=== PATIENT | female | born 1985 | race Caucasian/White ===

== ENCOUNTER 2020-11-02 10:46 | Emergency (ER) | payer OTHER ==
[2020-11-02 11:01] VITALS: O2SAT 98
[2020-11-02] MEDS ORDERED: KLONOPIN PO STA (11:07)
--- NOTE | 2020-11-02 11:34 | ERPHSYRPT ---
- History of Present Illness Time Seen by Provider: 11/02/20 10:49 Source: patient Exam Limitations: no limitations Patient Subjective Stated Complaint: Pt states "I take clonopin and I have new insurance and when I went to refill it, it was denied for some reason, I have been trying to get through with over the counter stuff, but I just cant, I need a little help with the meds." Triage Nursing Assessment: Pt presented alert and oriented X 3, skin pwd pt ambulates with an upright steady gait, able to speak in clear full sentnences pt in no apparent respiratory distress. Physician History: 35 years old female presented in the ER with chief complaint of withdrawal symptoms from Klonopin. Patient reports she has been taking Klonopin 1 mg twice a day for quite some time and recently her refill needed prior authorization which could not be done last week. Her last dose of Klonopin was more than 4 days ago and she has been trying [id number] stuff to help with her anxiety but her symptoms are getting out of control. She is feeling scary, palpitations, restlessness, abdominal cramping and mild diarrhea since yesterday. Denies any suicidal or homicidal ideations. Timing/Duration: day(s) (2), gradual onset, worse Severity: moderate Modifying Factors: Improves With: rest Allergies/Adverse Reactions: No Known Drug Allergies Allergy (Verified 11/02/20 11:01) Home Medications: Mirtazapine [Remeron] 15 mg PO DAILY 11/02/20 [History] Quetiapine Fumarate [Seroquel Xr] 200 mg PO HS 11/02/20 [History] clonazePAM [Clonazepam] 1 mg PO DAILY 11/02/20 [History] Hx Tetanus, Diphtheria Vaccination/Date Given: No Hx Influenza Vaccination/Date Given: No Hx Pneumococcal Vaccination/Date Given: No Immunizations Up to Date: Yes Travel Risk - International Travel Have you traveled outside of the country in past 3 weeks: No - Coronavirus Screening Are you exhibiting any of the following symptoms?: No Close contact with a COVID-19 positive Pt in past 14-21 Days: No - Review of Systems Constitutional: No Symptoms Eyes: No Symptoms Ears, Nose, & Throat: No Symptoms Respiratory: No Symptoms Cardiac: Palpitations Abdominal/Gastrointestinal: Abdominal Pain, Nausea, Diarrhea Genitourinary Symptoms: No Symptoms Musculoskeletal: Myalgias Skin: No Symptoms Neurological: No Symptoms Psychological: Anxiety Endocrine: No Symptoms Hematologic/Lymphatic: No Symptoms Immunological/Allergic: No Symptoms - Past Medical History Pertinent Past Medical History: Yes Neurological History: No Pertinent History ENT History: No Pertinent History Cardiac History: No Pertinent History Respiratory History: No Pertinent History Endocrine Medical History: No Pertinent History Musculoskeletal History: No Pertinent History GI Medical History: No Pertinent History History: No Pertinent History Psycho-Social History: Anxiety, Depression Female Reproductive Disorders: No Pertinent History - Past Surgical History Past Surgical History: Yes Other Surgical History: hysterecomy. tonsils. c section. wisdom teeth - Social History Smoking Status: Current every day smoker How long have you smoked: years Exposure to second hand smoke: Yes Drug Use: marijuana Patient Lives Alone: No - Female History Hx Last Menstrual Period: hysterecomy Hx Now: No - Nursing Vital Signs Nursing Vital Signs: Initial Vital Signs Temperature 99.2 F 11/02/20 10:55 Pulse Rate 102 H 11/02/20 10:55 Respiratory Rate 20 11/02/20 10:55 Blood Pressure 148/90 11/02/20 10:55 O2 Sat by Pulse Oximetry 98 11/02/20 10:55 Pain Scale Pain Intensity 0 - Physical Exam General Appearance: no apparent distress, alert, anxiety Eye Exam: PERRL/EOMI, eyes nml inspection Ears, Nose, Throat Exam: normal ENT inspection, TMs normal, pharynx normal Neck Exam: normal inspection, supple, full range of motion Respiratory Exam: normal breath sounds, chest tenderness Cardiovascular Exam: regular rate/rhythm, normal heart sounds Gastrointestinal/Abdomen Exam: soft, normal bowel sounds, No tenderness Back Exam: normal inspection, normal range of motion Extremity Exam: normal inspection, normal range of motion Neurologic Exam: alert, oriented x 3, cooperative, freezer operator II-XII nml as tested, nml cerebellar function, nml station & gait, sensation nml, No motor deficits, No sensory deficit Skin Exam: normal color SpO2 Interpretation: normal SpO2: 98 O2 Delivery: Room Air Ordered Tests: Medication Summary Discontinued Medications Generic Name Dose Route Start Last Admin Trade Name Freq PRN Reason Stop Dose Admin Clonazepam 2 mg 11/02/20 11:07 11/02/20 11:26 Klonopin PO 11/02/20 11:08 2 mg ONCE STA Administration - Progress Progress: improved Progress Note: 11/02/20 11:33 Patient's pharmacy is called and she does have a prescription they are needing prior authorization. She is given one-time dose of Klonopin here and recommended calling back her primary care in the morning so that prescription can be filled. Do not think she needs any other work-up and is stable for discharge. Counseled pt/family regarding: diagnosis, need for follow-up - Departure Departure Disposition: Home Clinical Impression: Withdrawal from benzodiazepine Qualifiers: Complication of substance-induced condition: with unspecified complication Qualified Code(s): F13.239 - Sedative, hypnotic or anxiolytic dependence with withdrawal, unspecified Condition: Stable Critical Care Time: No Referrals: DOCTOR,NO FAMILY [Primary Care Provider] - (Call your doctor in the morning for expediting prior authorization process and also follow-up with them for reevaluation) Instructions: Prescription Drug Withdrawal (DC) Additional Instructions: Follow-up with primary care for reevaluation. Return to ER for worsening anxiety symptoms/withdrawal symptoms. Also return to ER or call 911 if has any suicidal or homicidal ideations.
[2020-11-02 11:49] VITALS: BP 103/66; PULSE 88
== END 2020-11-02 11:50 | disposition home or self-care (01) ==
LOC: ED 10:46
DX: F13.239 Sedative, hypnotic or anxiolytic dependence with withdrawal, unspecified (principal)
CPT/HCPCS: 99283

== ENCOUNTER 2021-06-17 12:21 | Day surgery (SDC) | payer OTHER ==
[2021-06-17] MEDS ORDERED: LIDOCAINE HCL 2% 100 MG/5 ML IJ ONE (12:22)
[2021-06-17] MEDS ORDERED: DIPRIVAN 200 MG/20 ML IV ONE (13:54)
--- NOTE | 2021-06-17 15:22 | XRAY ---
Indication: Left C2-C4 MBB. Intraoperative fluoroscopy was provided for 8 seconds. 2 digital spot image submitted for interpretation demonstrates posterior needle tips projecting over the expected left C2-C4 nerve roots. Correlate with intraoperative findings/report.
[2021-06-17] MEDS ORDERED: Lactated Ringers 1,000 ML IV ONE (16:30)
--- NOTE | 2021-06-17 16:35 | XRAY ---
8 seconds of fluoroscopy was used in surgery for a left C2-C4 MBB.
== END 2021-06-17 14:25 | disposition home or self-care (01) ==
LOC: SDC-PAIN 12:21
PROVIDERS: ATTEND Psychiatry & Neurology Pain Medicine
DX: M47.812 Spondylosis without myelopathy or radiculopathy, cervical region (principal); Z79.899 Other long term (current) drug therapy
CPT/HCPCS: 64490; 64491; 72040; 77002; J2704

== ENCOUNTER 2021-10-18 15:27 | Emergency (ER) | payer OTHER ==
--- NOTE | 2021-10-18 16:06 | ERPHSYRPT ---
- History of Present Illness Time Seen by Provider: 10/18/21 16:04 Source: patient Exam Limitations: no limitations Patient Subjective Stated Complaint: Patient states that she has been having pain in lungs for a couple weeks which has progressively become worse. States eliel metz has a history of seizures thought it may be related to muscle pain. States her pain is a 10 when she coughs. Triage Nursing Assessment: patient to ED with pain in lungs from cough. Patients VS within normal limits. Lungs clear bilaterally. Physician History: Patient states that she has been having pain in lungs for a couple weeks which has progressively become worse. States she has a history of seizures thought it may be related to muscle pain. States her pain is a 10 when she coughs. Timing/Duration: week(s) (two weeks) Cough Quality/Degree: dry cough Possible Cause: no prior episodes Associated Symptoms: chest pain/soreness, cough, muscle aches, shortness of breath, No fever, No chills, No dizziness, No nasal congestion, No nasal bob inage, No sinus infection, No sore throat, No wheezing Allergies/Adverse Reactions: No Known Drug Allergies Allergy (Verified 10/18/21 15:43) Home Medications: clonazePAM [Clonazepam] 1 mg PO DAILY 11/02/20 [History] Carbamazepine 200 mg [Tegretol 200 MG] 200 mg PO TID 10/18/21 [History] Cyclobenzaprine HCl 5 mg PO 10/18/21 [History] Hydroxyzine HCl 50 mg/ml [Vistaril 50 MG/ML] 10/18/21 [History] Trazodone HCl 50 mg [Desyrel 50 mg] 50 mg PO DAILY 10/18/21 [History] hydrOXYzine pamoate [Hydroxyzine Pamoate] 10/18/21 [History] hydrOXYzine pamoate [Hydroxyzine Pamoate] 100 mg PO 10/18/21 [History] Hx Tetanus, Diphtheria Vaccination/Date Given: No Hx Influenza Vaccination/Date Given: No Hx Pneumococcal Vaccination/Date Given: No Travel Risk - International Travel Have you traveled outside of the country in past 3 weeks: No - Coronavirus Screening Are you exhibiting any of the following symptoms?: No Close contact with a COVID-19 positive Pt in past 14-21 Days: No - Vaccine Status Have you recieved a Covid-19 vaccination: No - Review of Systems Constitutional: No Fever, No Chills Eyes: No Symptoms Ears, Nose, & Throat: No Symptoms Respiratory: Cough, No Dyspnea Cardiac: No Chest Pain, No Edema, No Syncope Abdominal/Gastrointestinal: No Abdominal Pain, No Nausea, No Vomiting, No Diarrhea Genitourinary Symptoms: No Dysuria Musculoskeletal: No Back Pain, No Neck Pain Skin: No Rash Neurological: No Dizziness, No Focal Weakness, No Sensory Changes Psychological: No Symptoms Endocrine: No Symptoms All Other Systems: Reviewed and Negative - Past Medical History Pertinent Past Medical History: Yes Neurological History: No Pertinent History ENT History: No Pertinent History Cardiac History: No Pertinent History Respiratory History: No Pertinent History Endocrine Medical History: No Pertinent History Musculoskeletal History: No Pertinent History GI Medical History: No Pertinent History History: No Pertinent History Psycho-Social History: Anxiety, Depression Female Reproductive Disorders: No Pertinent History - Past Surgical History Past Surgical History: Yes Other Surgical History: hysterecomy. tonsils. c section. wisdom teeth - Social History Smoking Status: Current every day smoker How long have you smoked: years Exposure to second hand smoke: Yes Drug Use: marijuana Patient Lives Alone: No - Female History Hx Now: No (hysterectomy) - Nursing Vital Signs Nursing Vital Signs: Initial Vital Signs Temperature 98 F 10/18/21 15:35 Pulse Rate 84 10/18/21 15:35 Respiratory Rate 20 10/18/21 15:35 Blood Pressure 107/56 10/18/21 15:35 O2 Sat by Pulse Oximetry 100 10/18/21 15:35 Pain Scale Pain Intensity 8 - Physical Exam General Appearance: no apparent distress, alert Eye Exam: PERRL/EOMI, eyes nml inspection Ears, Nose, Throat Exam: normal ENT inspection, TMs normal, pharynx normal, moist mucous membranes Neck Exam: normal inspection, non-tender, supple, full range of motion Respiratory Exam: diminished breath sounds, crackles/rales, rhonchi, wheezing, No respiratory distress Cardiovascular Exam: regular rate/rhythm, normal heart sounds Gastrointestinal/Abdomen Exam: soft, No tenderness Back Exam: normal inspection, No CVA tenderness, No vertebral tenderness Extremity Exam: normal inspection, normal range of motion Neurologic Exam: alert, oriented x 3, cooperative, normal mood/affect, sensation nml, No motor deficits Skin Exam: normal color, warm, dry, No rash Lymphatic Exam: No adenopathy SpO2: 100 - Course Nursing assessment & vital signs reviewed: Yes EKG Interpreted by Me: Sinus Rhythm - Radiology Exams Chest X-ray Interpretation: Reviewed by me, Negative Ordered Tests: Active Orders 24 hr Category Date Time Status CHEST 2 VIEWS (PA AND LAT) Stat Exams 10/18/21 16:03 Taken CBC W DIFF Stat Lab 10/18/21 16:27 Completed CMP Stat Lab 10/18/21 16:27 Completed COVID AG-BINAX NOW RAPID TEST Stat Lab 10/18/21 16:27 Completed D-DIMER QUANTITATIVE Stat Lab 10/18/21 16:27 Completed TROPONIN Q3H Lab 10/18/21 16:27 Completed TROPONIN Q3H Lab 10/18/21 19:00 Ordered TROPONIN Q3H Lab 10/18/21 22:00 Ordered TROPONIN Q3H Lab 10/19/21 01:00 Ordered TROPONIN Q3H Lab 10/19/21 04:00 Ordered Medication Summary Discontinued Medications Generic Name Dose Route Start Last Admin Trade Name Freq PRN Reason Stop Dose Admin Hydrocortisone Sodium Succinate 250 mg 10/18/21 17:23 Hydrocortisone Sod Succinate 250 Mg/Vial Vial IV 10/18/21 17:24 Q6H STA Lab/Rad Data: Laboratory Result Diagrams 10/18/21 16:27 10/18/21 16:27 Laboratory Results 10/18/21 10/18/21 10/18/21 Range/Units 16:27 16:27 16:27 WBC (4.0-10.5) K/mm3 RBC (4.1-5.4) M/mm3 Hgb (12.0-16.0) gm/dl Hct (35-47) % MCV (78-100) fl MCH (26-32) pg MCHC (32-36) g/dl RDW (11.5-14.0) % Plt Count (150-450) K/mm3 MPV (7.5-11.0) fl Gran % (36.0-66.0) % Eos # (Auto) (0-0.5) Absolute Lymphs (auto) (1.0-4.6) Absolute Monos (auto) (0.0-1.3) Lymphocytes % (24.0-44.0) % Monocytes % (0.0-12.0) % Eosinophils % (0.00-5.0) % Basophils % (0.0-0.4) % Absolute Granulocytes (1.4-6.9) Basophils # (0-0.4) D-Dimer 403 (215-500) ng/mL Sodium (137-145) mmol/L Potassium (3.5-5.1) mmol/L Chloride (98-107) mmol/L Carbon Dioxide (22-30) mmol/L Anion Gap (5-15) MEQ/L BUN (7-17) mg/dL Creatinine (0.52-1.04) mg/dL Estimated GFR ML/MIN Glucose (74-106) mg/dL Calcium (8.4-10.2) mg/dL Total Bilirubin (0.2-1.3) mg/dL AST (14-36) U/L ALT (0-35) U/L Alkaline Phosphatase (38-126) U/L Troponin I < 0.012 (0.000-0.034) ng/mL Serum Total Protein (6.3-8.2) g/dL Albumin (3.5-5.0) g/dL SARS-CoV-2 Ag (Rapid) NEGATIVE (NEGATIVE) 10/18/21 10/18/21 Range/Units 16:27 16:27 WBC 4.4 (4.0-10.5) K/mm3 RBC 3.64 L (4.1-5.4) M/mm3 Hgb 11.6 L (12.0-16.0) gm/dl Hct 35.0 (35-47) % MCV 96.2 (78-100) fl MCH 31.9 (26-32) pg MCHC 33.1 (32-36) g/dl RDW 12.5 (11.5-14.0) % Plt Count 299 (150-450) K/mm3 MPV 9.1 (7.5-11.0) fl Gran % 35.1 L (36.0-66.0) % Eos # (Auto) 0.14 (0-0.5) Absolute Lymphs (auto) 2.18 (1.0-4.6) Absolute Monos (auto) 0.48 (0.0-1.3) Lymphocytes % 49.8 H (24.0-44.0) % Monocytes % 11.0 (0.0-12.0) % Eosinophils % 3.2 (0.00-5.0) % Basophils % 0.9 (0.0-0.4) % Absolute Granulocytes 1.54 (1.4-6.9) Basophils # 0.04 (0-0.4) D-Dimer (215-500) ng/mL Sodium 141 (137-145) mmol/L Potassium 4.2 (3.5-5.1) mmol/L Chloride 104 (98-107) mmol/L Carbon Dioxide 31 H (22-30) mmol/L Anion Gap 9.1 (5-15) MEQ/L BUN 7 (7-17) mg/dL Creatinine 0.85 (0.52-1.04) mg/dL Estimated GFR > 60.0 ML/MIN Glucose 78 (74-106) mg/dL Calcium 9.1 (8.4-10.2) mg/dL Total Bilirubin 0.30 (0.2-1.3) mg/dL AST 23 (14-36) U/L ALT 10 (0-35) U/L Alkaline Phosphatase 55 (38-126) U/L Troponin I (0.000-0.034) ng/mL Serum Total Protein 6.1 L (6.3-8.2) g/dL Albumin 3.8 (3.5-5.0) g/dL SARS-CoV-2 Ag (Rapid) (NEGATIVE) - Progress Progress: improved Air Movement: good Blood Culture(s) Obtained: No Antibiotics given: No Counseled pt/family regarding: drug and/or alcohol abuse, lab results, d iagnosis, need for follow-up, rad results, smoking cessation - Departure Departure Disposition: Home Clinical Impression: Pleurisy without effusion Condition: Stable Critical Care Time: No Referrals: RADHA MENA DROP WORKER [Primary Care Provider] - Follow up/PCP as directed Instructions: Pleuritic Chest Pain (DC) Additional Instructions: Discharge/Care Plan RADHA SALCEDO was seen on 10/18/21 in the Emergency Room. The patient was counseled regarding Diagnosis,Lab results, Imaging studies, need for follow up and when to return to the Emergency Room. Prescriptions given: Discharge Note I have spoken with the patient and/or caregivers. I have explained the patient's condition, diagnosis and treatment plan based on the information available to me at this time. I have answered the patient's and/or caregiver's questions and addressed any concerns. The patient and/or caregivers have as good understanding of the patient's diagnosis, condition and treatment plan as can be expected at this point. The vital signs have been stable. The patient's condition is stable and appropriate for discharge from the emergency department. The patient will pursue further outpatient evaluation with the primary care physician or other designated or consulting physician as outlined in the dischar ge instructions. The patient and/or caregivers are agreeable to this plan of care and follow-up instructions have been explained in detail. The patient and/or caregivers have received these instruction. The patient/and or caregivers are aware that any significant change in condition or worsening of symptoms should prompt an immediate return to this or the closest emergency department or call 911. DENISSERADHA was seen on 10/18/21 n the Emergency Room. At that time you were treated for an emergent condition, during your visit Laboratory, Radiology and/or other procedures may have been ordered. It is very important that you follow-up with your Primary Care Physician RADHA MENA NP within the next 24-48 hours to review your Emergency Room visit and the final results of testing that was ordered. Some test results such as Urine Cultures, Blood Cultures, and other cultures if ordered will not be finalized for 24-48 hours. If you do not have a Primary Care Provider please call the medical records department at [phone] ext [phone] to obtain a copy of your results or you may sign into our patient portal to obtain these results by visiting us @ [email or web address] and completing the following steps: 1. Click on the Patient Portal link 2. Click the Patient Self Enrollment Link to complete the enrollment form and entering your 3. Once the enrollment form is completed you will receive an email with a temporary ID and password at the email address you provided. 4. Next choose a user name and password. Your user name must be at least 4 characters long and your password must be at least 4 characters long. 5. Choose a security question from the list and provide your answer to the question. If you already have signed into the Health Portal you may access your Health Care Information 21/03 by the following steps: 1. Login to our website @ [email or web address] 2. Enter your original user name and password. FAQS The [facility] Portal is an online tool that contains your Lab Results, R adiology Reports, Visit History, Discharge Instructions and Health Summary Lab and Radiology Results will not be available for 72 hours on the portal. The Portal is a secure site, passwords are encryted and URLs are re-written so they cannot be copied and pasted. You and authorized family members are the only ones who can access your Portal. Also there is a timeout feature that protects your information if you leave the Portal page open. If you have technical difficulty please use the Contact Us link on the page this will allow you to submit any questions you have regarding the Portal or you may contact the Medical Record Department at [phone] ext [phone]. Prescriptions: Amoxicillin 500 mg PO TID #30 tablet Methylprednisolone Packet [Medrol Dosepack] 4 mg PO UD #30 packet
[2021-10-18 16:41] LABS: Absolute Neutrophil Ct (ANC) 1.54 (1.4-6.9); Basophil (Absolute #) 0.04 (0-0.4); Eosinophil % 3.2 % (0.00-5.0); Eosinophil (Absolute #) 0.14 (0-0.5); Hemoglobin 11.6 gm/dl (12.0-16.0); Lymphocyte (Absolute #) 2.18 (1.0-4.6); Lymphocytes % 49.8 % (24.0-44.0); Mean Cell Volume 96.2 fl (78-100); Mean Corpuscular Hemoglobin 31.9 pg (26-32); Mean Corpuscular Hgb Concent. 33.1 g/dl (32-36); Mean Platelet Volume 9.1 fl (7.5-11.0); Monocyte (Absolute #) 0.48 (0.0-1.3); Neutrophil % 35.1 % (36.0-66.0); Platelet Count 299 K/mm3 (150-450); Red Blood Count 3.64 M/mm3 (4.1-5.4); Red Cell Distribution Width 12.5 % (11.5-14.0); White Blood Count 4.4 K/mm3 (4.0-10.5)
[2021-10-18 16:52] LABS: ALBUMIN 3.8 g/dL (3.5-5.0); ALKALINE PHOSPHATASE 55 U/L (38-126); ANION GAP 9.1 MEQ/L (5-15); BLOOD UREA NITROGEN 7 mg/dL (7-17); CHLORIDE 104 mmol/L (98-107); Calcium 9.1 mg/dL (8.4-10.2); Carbon Dioxide 31 mmol/L (22-30); Creatinine 1 0.85 mg/dL (0.52-1.04); EST GLOMERULAR FILTRATION RATE > 60.0 ML/MIN; Glucose 78 mg/dL (74-106); Potassium 4.2 mmol/L (3.5-5.1); SGOT/AST 23 U/L (14-36); SGPT/ALT 10 U/L (0-35); SODIUM 141 mmol/L (137-145); Total Protein 6.1 g/dL (6.3-8.2)
[2021-10-18 17:02] LABS: COVID AG -BINAX NOW RAPID TEST NEGATIVE (NEGATIVE)
[2021-10-18] MEDS ORDERED: solu-CORTEF 250MG IV STA (17:23)
[2021-10-18] MEDS ORDERED: solu-CORTEF 250MG ONE (18:08)
[2021-10-18] MEDS ORDERED: solu-CORTEF 250MG IM ONE (18:11)
[2021-10-18 18:25] VITALS: BP 98/60; PULSE 78; O2SAT 98
--- NOTE | 2021-10-18 19:11 | XRAY ---
Indication: Right chest pain and short of breath. Comparison: None PA/lateral chest hyperinflated and clear. Heart not enlarged. Bony thorax intact with remote appearing T7 and lesser degree T6 compression deformities with 10-25% height loss.
== END 2021-10-18 18:23 | disposition home or self-care (01) ==
LOC: ED 15:27
DX: R09.1 Pleurisy (principal); R05.9 Cough, unspecified; R07.9 Chest pain, unspecified; M79.10 Myalgia, unspecified site; R06.02 Shortness of breath; Z72.0 Tobacco use; Z79.899 Other long term (current) drug therapy; Z79.52 Long term (current) use of systemic steroids
CPT/HCPCS: 36415; 71046; 80053; 84484; 85025; 85379; 96372; 99000; 99284; J1720

== ENCOUNTER 2022-01-27 11:44 | Day surgery (SDC) | payer OTHER ==
[2022-01-27] MEDS ORDERED: Versed 2 MG/2 ML Injection ONE (13:12)
[2022-01-27] MEDS ORDERED: DIPRIVAN 200 MG/20 ML IV ONE (13:52)
[2022-01-27] MEDS ORDERED: Zofran 4 MG/2 ML VIAL ONE (14:12)
[2022-01-27] MEDS ORDERED: Lactated Ringers 1,000 ML IV ONE (14:40)
--- NOTE | 2022-01-27 15:05 | XRAY ---
Indication: Bilateral SI joint injection. Intraoperative fluoroscopy provided for 14 seconds. 4 digital spot images submitted for interpretation demonstrates posterior needle tip projecting over the inferior left and right SI joint. Correlate with intraoperative findings/report.
--- NOTE | 2022-01-27 15:06 | XRAY ---
14 seconds of fluoroscopy was used in surgery for bilateral SI joint injections.
== END 2022-01-27 14:17 | disposition home or self-care (01) ==
LOC: SDC-PAIN 11:44
PROVIDERS: ATTEND Psychiatry & Neurology Pain Medicine
DX: M46.1 Sacroiliitis, not elsewhere classified (principal); Z79.899 Other long term (current) drug therapy
CPT/HCPCS: 27096; 72202; 77002; G0260; J2250; J2405; J2704

== ENCOUNTER 2022-10-14 16:53 | Emergency (ER) | payer OTHER ==
--- NOTE | 2022-10-14 17:02 | ERPHSYRPT ---
- History of Present Illness Time Seen by Provider: 10/14/22 17:02 Source: patient Exam Limitations: no limitations Physician History: This is a 37-year-old white female who presented to our emergency department with pain in the left great toe without trauma. Began 2 days ago and there is redness and swelling to the area. Patient arrives with crutches. She was seen at [facility] emergency department yesterday and underwent a CT scan of the left foot which showed mild soft tissue swelling in the distribution of the left great toe but no acute fracture or dislocation. There is also left hiprib x- ray performed and again no acute fracture or dislocation. Patient's pain has persisted. She is here for reevaluation and second opinion. Method of Injury: unknown Occurred: days ago (2) Quality: constant, aching Severity of Pain-Max: moderate Severity of Pain-Current: moderate Lower Extremities Pain: 1st toe: left Modifying Factors: Improves With: movement Associated Symptoms: other (Hurts to bear weight) Allergies/Adverse Reactions: No Known Drug Allergies Allergy (Verified 10/18/21 15:43) Home Medications: clonazePAM [Clonazepam] 1 mg PO DAILY 11/02/20 [History] Carbamazepine 200 mg [Tegretol 200 MG] 200 mg PO TID 10/18/21 [History] Cyclobenzaprine HCl 5 mg PO 10/18/21 [History] Hydroxyzine HCl 50 mg/ml [Vistaril 50 MG/ML] 10/18/21 [History] Trazodone HCl 50 mg [Desyrel 50 mg] 50 mg PO DAILY 10/18/21 [History] hydrOXYzine pamoate [Hydroxyzine Pamoate] 10/18/21 [History] hydrOXYzine pamoate [Hydroxyzine Pamoate] 100 mg PO 10/18/21 [History] Hx Tetanus, Diphtheria Vaccination/Date Given: No Hx Influenza Vaccination/Date Given: No Hx Pneumococcal Vaccination/Date Given: No Travel Risk - International Travel Have you traveled outside of the country in past 3 weeks: No - Coronavirus Screening Are you exhibiting any of the following symptoms?: No Close contact with a COVID-19 positive Pt in past 14-21 Days: No - Vaccine Status Have you recieved a Covid-19 vaccination: No - Review of Systems Constitutional: No Symptoms Eyes: No Symptoms Ears, Nose, & Throat: No Symptoms Respiratory: No Symptoms Cardiac: No Symptoms Abdominal/Gastrointestinal: No Symptoms Genitourinary Symptoms: No Symptoms Musculoskeletal: Joint Pain (Left first toe) Skin: No Symptoms Neurological: No Symptoms Psychological: No Symptoms Endocrine: No Symptoms Hematologic/Lymphatic: No Symptoms Immunological/Allergic: No Symptoms All Other Systems: Reviewed and Negative - Past Medical History Pertinent Past Medical History: Yes Neurological History: No Pertinent History ENT History: No Pertinent History Cardiac History: No Pertinent History Respiratory History: No Pertinent History Endocrine Medical History: No Pertinent History Musculoskeletal History: No Pertinent History GI Medical History: No Pertinent History History: No Pertinent History Psycho-Social History: Anxiety, Depression Female Reproductive Disorders: No Pertinent History - Past Surgical History Past Surgical History: Yes Other Surgical History: hysterecomy. tonsils. c section. wisdom teeth - Social History Smoking Status: Current every day smoker How long have you smoked: years Exposure to second hand smoke: Yes Drug Use: marijuana Patient Lives Alone: No - Nursing Vital Signs Nursing Vital Signs: Initial Vital Signs Temperature 99.4 F 10/14/22 17:00 Pulse Rate 85 10/14/22 17:00 Respiratory Rate 16 10/14/22 17:00 Blood Pressure 104/58 10/14/22 17:00 O2 Sat by Pulse Oximetry 99 10/14/22 17:00 Pain Scale Pain Intensity 8 - Physical Exam General Appearance: no apparent distress, alert, anxiety Eyes, Ears, Nose, Throat Exam: normal ENT inspection, moist mucous membranes Neck Exam: normal inspection, non-tender, supple, full range of motion Cardiovascular/Respiratory Exam: chest non-tender, no respiratory distress Gastrointestinal/Abdominal Exam: non-tender Back Exam: normal inspection, normal range of motion, No CVA tenderness, No vertebral tenderness Hips Exam: bilateral: non-tender, normal inspection, normal range of motion Legs Exam: bilateral leg: non-tender, normal inspection, normal range of motion, no evidence of injury Knees Exam: bilateral knee: non-tender, normal inspection, normal range of motion, no evidence of injury Ankle Exam: bilateral ankle: non-tender, normal inspection, normal range of motion, no evidence of injury Foot Exam: right foot: non-tender, normal inspection, normal range of motion, no evidence of injury, left foot: bone tenderness (First toe), limited range of motion (First toe), soft tissue tenderness (First toe), swelling (First toe) Neuro/Tendon Exam: normal sensation, normal motor functions, normal tendon functions Mental Status Exam: alert, oriented x 3, cooperative Skin Exam: normal color, warm, dry SpO2 Interpretation: normal - Course Nursing assessment & vital signs reviewed: Yes Ordered Tests: Active Orders 24 hr Category Date Time Status FOOT (MINIMUM 3 VIEWS) Stat Exams 10/14/22 17:17 Taken - Progress Progress: pain not gone completely, re-examined Progress Note: 10/14/22 18:58 X-ray left foot here at [facility] was interpreted by me. No acute fracture or dislocation. Counseled pt/family regarding: diagnosis, need for follow-up, rad results Medical Desision Making - Independent Historian Additional History obtained from: EMS (Additional history obtained from emergency room visit at [facility] outside facility) - External Record(s) Reviewed Records reviewed as a part of evaluation & management: EMS [facility] - Discussion of managment Reviewed:: Test results (Discussed with the patient) Agreed on:: Treatment plan (Discussed with the patient), need for follow-up (Discussed with the patient) - Diagnostic Testing Diagnostic Testing: Diagnostic tests were ordered,analyzed, and reviewed by me and used in my medical decision making for this patient. Radiologic studies (if ordered) were read by me initially then discussed with the radiologist . - Risk of complications Low Risk: Low risk of morbidity from additional dx testing or treatment - Departure Departure Disposition: Home Clinical Impression: Pain and swelling of toe of left foot Condition: Stable Critical Care Time: No Referrals: RADHA MENA CRM DYNAMICS DEVELOPER [Primary Care Provider] - Follow up/PCP as directed Additional Instructions: Take your medication as prescribed. When not ambulating elevate the left leg above the level of your heart. May use ice pack to the area 2-3 times a day. If symptoms persist beyond the next 48 hours, may follow-up with Dr. Riggins (podiatry) by calling his office to make arranges for follow-up appointment. Another option is to be seen in a walk-in clinic that does not require an appointment here at [facility] orthopedic clinic. It is open Tuesday through Tuesday 8 AM to 10 AM. Prescriptions: Oxycodone HCl/Acetaminophen [Percocet 5-325 mg Tablet] 1 each PO Q8H PRN PRN #6 tablet MDD 3 PRN Reason: Moderate To Severe Pain Indomethacin 25 mg [Indocin 25 MG] 25 mg PO TID #15 cap
[2022-10-14 17:21] VITALS: BP 104/58; PULSE 85; O2SAT 99
--- NOTE | 2022-10-15 09:02 | XRAY ---
Indication: 1st metatarsal pain. Comparison: None 3 nonweightbearing views left foot demonstrates fragmented 1st metatarsal lateral sesamoid bone of uncertain clinical significance. No other bony, articular, or soft tissue abnormalities.
== END 2022-10-14 19:16 | disposition home or self-care (01) ==
LOC: ED 16:53
DX: M79.675 Pain in left toe(s) (principal); Z79.891 Long term (current) use of opiate analgesic; Z79.899 Other long term (current) drug therapy; Z28.310 Unvaccinated for COVID-19; Z72.0 Tobacco use
CPT/HCPCS: 73630; 99282

== ENCOUNTER 2022-11-15 08:15 | Day surgery (SDC) | payer OTHER ==
[2022-11-15] MEDS ORDERED: Pepcid 20 MG VIAL IV ONE ×2 (08:31→08:40)
[2022-11-15] MEDS ORDERED: Reglan 10 MG/2 ML IV ONE (08:31)
[2022-11-15] MEDS ORDERED: Transderm Scop 1.5MG Patch TOP PRN (08:31)
[2022-11-15] MEDS ORDERED: Lactated Ringers 1,000 ML IV ONE ×2 (08:40→12:13)
[2022-11-15] MEDS ORDERED: Reglan 10 MG/2 ML ONE (08:40)
[2022-11-15] MEDS ORDERED: Transderm Scop 1.5MG Patch ONE (08:40)
[2022-11-15] MEDS ORDERED: MEFOXIN 2 GM PREMIX** 2 GM/50 ML ML IV ONE (08:41)
--- NOTE | 2022-11-15 08:59 | HP ---
DATE OF SURGERY: 11/15/2022 HISTORY OF PRESENT ILLNESS: The patient is a 37-year-old with epigastric pain radiating to the back, nausea and vomiting. CT showed some small stones. PAST MEDICAL HISTORY: Chronic obstructive pulmonary disease, emphysema, seizure disorder. PAST SURGICAL HISTORY: section. Colonoscopy. Hysterectomy. Tonsillectomy. Novice teeth. MEDICATIONS: Carbamazepine, trazodone, Lamictal, Albuterol, Anoro Ellipta. ALLERGIES: NKDA. FAMILY HISTORY: Heart disease. Lung cancer. SOCIAL HISTORY: Marijuana smoker. No alcohol abuse. REVIEW OF SYSTEMS: Fourteen systems reviewed. No chest pain or palpitations. Other systems negative or noncontributory as above and per preadmission questionnaire. PHYSICAL EXAMINATION: Height 5' 5". BMI 17.4. GENERAL: No acute distress. HEENT: Sclerae nonicteric. NECK: No JVD. CHEST: Equal excursion, nonlabored breathing. CVS: Regular rate and rhythm. ABDOMEN: Soft. No peritoneal signs. She had some mild tenderness epigastrium. EXTREMITIES: No significant edema. No cyanosis. NEURO: Alert, oriented, moving extremities symmetrically. No gross motor deficits noted. PSYCH: Appropriate mood and affect. SKIN: Dry. IMPRESSION: Epigastric pain, nausea and vomiting. Probably cholelithiasis or sludge, question of acute exacerbation chronic cholecystitis, cholelithiasis or sludge, symptomatic cholelithiasis sludge. I feel the patient would benefit from cholecystectomy. Risk explained in detail including but not limited to bleeding or infection, risk of trocar injury or hernia, risk of bowel, bladder or blood vessel injury, risk of bile leak, bile duct injury, retained stone or sludge possibly requiring further procedure either open or ERCP, general risk of anesthesia, deep venous thrombosis, pulmonary embolism, pneumonia, perioperative risk of aches, pains, bloating, constipation and/or loose stools possibly even chronic in nature, possible no improvement in preoperative symptoms possibly requiring other work up, endoscopy, other studies or referrals. She understands and agrees to the planned procedure, will proceed with laparoscopic cholecystectomy with possible open as an outpatient.
[2022-11-15] MEDS ORDERED: Lactated Ringers 1,000 ML IV SCH (09:00)
[2022-11-15] MEDS ORDERED: MEFOXIN 2 GM PREMIX** 2 GM/50 ML ML IV SCH (09:00)
[2022-11-15 09:25] LABS: Hematocrit 38.3 % (35-47); Hemoglobin 12.7 g/dL (12.0-16.0); Mean Cell Volume 94.6 fL (78-100); Mean Corpuscular Hemoglobin 31.4 pg (26-32); Mean Corpuscular Hgb Concent. 33.2 g/dL (32-36); Mean Platelet Volume 9.5 fL (7.5-11.0); Platelet Count 292 x10^3/uL (150-450); Red Blood Count 4.05 x10^6/uL (4.1-5.4); Red Cell Distribution Width 12.4 % (11.5-14.0); White Blood Count 6.7 x10^3/uL (4.0-10.5)
[2022-11-15] MEDS ORDERED: Sensorcaine 0.25% 10 ML ONE (09:35)
[2022-11-15 10:04] LABS: ALKALINE PHOSPHATASE 60 U/L (38-126); BLOOD UREA NITROGEN 7 mg/dL (7-17); CHLORIDE 105 mmol/L (98-107); Calcium 8.6 mg/dL (8.4-10.2); Carbon Dioxide 29 mmol/L (22-30); Creatinine 1 0.61 mg/dL (0.52-1.04); EST GLOMERULAR FILTRATION RATE > 60.0 ML/MIN; Glucose 83 mg/dL (74-106); SGOT/AST 23 U/L (14-36); SGPT/ALT 14 U/L (0-35); SODIUM 136 mmol/L (137-145); Total Protein 6.3 g/dL (6.3-8.2)
[2022-11-15 10:06] LABS: Potassium 3.8 mmol/L (3.5-5.1)
[2022-11-15 10:07] LABS: ANION GAP 5.8 MEQ/L (5-15)
[2022-11-15] MEDS ORDERED: Versed 2 MG/2 ML Injection IV PRN (11:00)
[2022-11-15] MEDS ORDERED: Versed 2 MG/2 ML Injection ONE (11:15)
[2022-11-15] MEDS ORDERED: DIPRIVAN 200 MG/20 ML IV ONE (11:15)
[2022-11-15] MEDS ORDERED: Zemuron 100 MG/10 ML ONE (11:15)
[2022-11-15] MEDS ORDERED: SUBLIMAZE 100 MCG/2 ML ONE ×2 (11:15→12:30)
[2022-11-15] MEDS ORDERED: Xylocaine-Mpf 2% 5 Ml Vial ONE (11:18)
[2022-11-15] MEDS ORDERED: Ephedrine Sulfate 50 MG/ML ONE (11:30)
[2022-11-15] MEDS ORDERED: MORPHINE SULFATE 10 MG/ML ONE (12:06)
[2022-11-15] MEDS ORDERED: BRIDION 200MG/2ML IV ONE (12:07)
[2022-11-15] MEDS ORDERED: Zofran 4 MG/2 ML VIAL ONE (12:47)
[2022-11-15] MEDS ORDERED: NORCO 5/325 MG PO PRN (13:40)
[2022-11-15 14:12] VITALS: BP 117/60; PULSE 50; O2SAT 97
--- NOTE | 2022-11-16 09:23 | OP ---
SURGERY DATE/TIME: 11/15/2022 1113 PREOPERATIVE DIAGNOSIS: Acute exacerbation of chronic cholecystitis, symptomatic cholelithiasis. POSTOPERATIVE DIAGNOSIS: Acute exacerbation of chronic cholecystitis, symptomatic cholelithiasis. PROCEDURE: Laparoscopic cholecystectomy. SURGEON: Dr. Leoncio Heller. GLUTEN SETTLING TENDER: Elías Koehler, Medical Student III. ANESTHESIA: General. ESTIMATED BLOOD LOSS: Minimal. INDICATIONS: As noted above. Risks and benefits explained in detail but not limited to and consent obtained. DESCRIPTION OF PROCEDURE AND FINDINGS: The patient was taken to the operating room. General anesthesia induced. Abdomen prepped and draped in usual sterile fashion. After official time out and no disagreement with planned procedure, a transverse incision made in the supraumbilical area. Fascia grasped, pulled upward. Veress needle inserted and tested with saline. Pneumoperitoneum accomplished insufflating opening pressure of 0-15. An 11 mm bladeless port and camera were inserted without difficulty followed by two - 5 mm right upper quadrant ports and 10 mm epigastric port. The gallbladder had some chronic inflammation. Dissection carried posterior, lateral to anterior fashion. Unfortunately the cautery fell on the floor requiring several minutes to locate another one but eventually obtained. Continued to dissect posterior, lateral to anterior fashion. The main cystic artery, cystic duct and infundibular junction well skeletonized until the critical view was obtained both anteriorly and posteriorly. Once this is accomplished, the cystic duct and cystic artery were clipped x3 and divided in the usual fashion. The gallbladder is slowly and carefully dissected free from its dense attachments to the liver bed clipping additional oozing side branch off of the cystic artery and cystic vein as necessary directly on the gallbladder wall. Just prior to releasing from final attachment to the anterior edge of the liver, the liver bed re-inspected. Clips noted in place in the cystic duct and cystic artery stumps. No signs of any active bleeding or bile leakage. It was felt there was no benefit in drain placement. Gallbladder released from final attachments to anterior edge of the liver. A small amount of bile had seeped from the Kimmie's pouch where grasper tore a small pinhole but no signs of any large stone spillage. Copious amount of irrigation irrigating clear. The gallbladder is placed in the provided sac and pulled up out the supraumbilical port site and passed off. The fascial defect closed with puncture closure device under direct vision of the camera with #1 Vicryl. Pneumoperitoneum decompressed. The wound irrigated out. Skin incision closed with 4-0 Vicryl. 0.25% Marcaine local injected along the skin incision fascial defect. The patient tolerated the procedure well. There were no immediate complications. There was no family available to discuss the findings with out in the waiting area.
== END 2022-11-15 14:05 | disposition home or self-care (01) ==
LOC: SDC 08:15
PROVIDERS: ATTEND Surgery
DX: K80.10 Calculus of gallbladder with chronic cholecystitis without obstruction (principal); Z80.1 Family history of malignant neoplasm of trachea, bronchus and lung; J44.9 Chronic obstructive pulmonary disease, unspecified
CPT/HCPCS: 36415; 80053; 85027; 93005; 96374; 96375; J0694; J2250; J2270; J2405; J2704; J3010; A9270-GY

== ENCOUNTER 2023-01-31 12:13 | Emergency (ER) | payer OTHER ==
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
[2023-01-31] MEDS ORDERED: MORPHINE SULFATE 4 MG INJ IV ONE (12:44)
[2023-01-31] MEDS ORDERED: Zofran 4 MG/2 ML VIAL IV ONE (12:44)
[2023-01-31] MEDS ORDERED: Sodium Chloride 0.9% 1000 ML 1,000 ML IV STA (12:44)
[2023-01-31 12:53] VITALS: O2SAT 99
[2023-01-31] MEDS ORDERED: MORPHINE SULFATE 4 MG INJ ONE (12:54)
[2023-01-31] MEDS ORDERED: Sodium Chloride 0.9% 1000 ML 1,000 ML ONE (12:54)
[2023-01-31] MEDS ORDERED: Zofran 4 MG/2 ML VIAL ONE (12:54)
[2023-01-31 12:56] LABS: Absolute Neutrophil Ct (ANC) 4.39 x10^3/uL (1.4-6.9); BASOPHIL % 0.6 % (0.0-0.4); Basophil (Absolute #) 0.04 x10^3/uL (0-0.4); Eosinophil % 2.6 % (0.00-5.0); Eosinophil (Absolute #) 0.17 x10^3/uL (0-0.5); Hematocrit 34.6 % (35-47); Hemoglobin 11.9 g/dL (12.0-16.0); IMMATURE GRAN # 0.02 x10^3u/L (0.00-0.03); IMMATURE GRAN % 0.3 % (0.00-0.4); Lymphocyte (Absolute #) 1.29 x10^3/uL (1.0-4.6); Lymphocytes % 20.1 % (24.0-44.0); Mean Cell Volume 92.3 fL (78-100); Mean Corpuscular Hemoglobin 31.7 pg (26-32); Mean Corpuscular Hgb Concent. 34.4 g/dL (32-36); Mean Platelet Volume 8.8 fL (7.5-11.0); Monocyte (Absolute #) 0.51 x10^3/uL (0.0-1.3); Monocytes % 7.9 % (0.0-12.0); Neutrophil % 68.5 % (36.0-66.0); Platelet Count 295 x10^3/uL (150-450); Red Blood Count 3.75 x10^6/uL (4.1-5.4); Red Cell Distribution Width 12.2 % (11.5-14.0); White Blood Count 6.4 x10^3/uL (4.0-10.5)
[2023-01-31 13:19] LABS: Appearance Clear (Clear); Bacteria None Seen /HPF (None Seen); Bilirubin Negative (Negative); Blood Negative (Negative); Epithelial Cells None Seen /HPF (None Seen); Glucose, Urine Negative (Negative); Hyaline Casts NONE SEEN /LPF (0-2); Ketones Negative (Negative); Leukocyte Esterase Small (Negative); Nitrite Negative (Negative); Ph 8.5 (4.6-8.0); Protein,Urine Dip Negative (Negative); RBC 0-2 /HPF (0-5); Urobilinogen 0.2 mg/dL (0.2)
[2023-01-31 13:20] LABS: WBC 0-2 /HPF (0-5)
[2023-01-31 13:21] LABS: ADD URINE CULTURE? NO (NO)
[2023-01-31 13:24] LABS: ALBUMIN 3.9 g/dL (3.5-5.0); ALKALINE PHOSPHATASE 71 U/L (38-126); ANION GAP 11.6 MEQ/L (5-15); BLOOD UREA NITROGEN 7 mg/dL (7-17); CHLORIDE 105 mmol/L (98-107); Calcium 9.3 mg/dL (8.4-10.2); Carbon Dioxide 27 mmol/L (22-30); Creatinine 1 0.68 mg/dL (0.52-1.04); EST GLOMERULAR FILTRATION RATE > 60.0 ML/MIN; Glucose 105 mg/dL (74-106); NT PRO BNPII 152 pg/mL (<300); Potassium 3.7 mmol/L (3.5-5.1); SGOT/AST 30 U/L (14-36); SGPT/ALT 21 U/L (0-35); SODIUM 141 mmol/L (137-145); TROPONIN < 0.012 ng/mL (0.000-0.034); Total Protein 6.4 g/dL (6.3-8.2)
[2023-01-31 15:01] VITALS: PULSE 76
--- NOTE | 2023-01-31 15:47 | XRAY ---
CLINICAL HISTORY:SOA; elevated D-dimer. COMPARISON:None. TECHNIQUES:Axial CT images of the chest were acquired with the administration of 80 cc isovue as an intravenous contrast. Coronal and sagittal reconstructions were obtained. CTDI 27.13 DLP 231.12. FINDINGS: No CT evidence of pulmonary embolism seen. No dilated pulmonary trunk. Left basal thick reticular bands. The scanned pulmonary parenchyma shows no definite consolidative lesions or masses. No free or encysted pleural effusion. Heart size is normal, and there is no pericardial effusion. No pathologically enlarged mediastinal, hilar or axillary lymph node was identified. There is no definite mass lesion in the chest wall. The upper vertebral show multiple level of Decreased height anteriorly with small Schmorl`s nodes seen, Scheuermann disease is suspected, follow-up is recommended. The scanned upper abdomen shows foci of air under diaphragm seen tracking behind the liver. IMPRESSION: 1. No CT evidence of pulmonary embolism seen. No dilated pulmonary trunk. 2. The upper vertebral show multiple level of decreased height anteriorly with small Schmorls nodes seen, Scheuermann disease is suspected, follow-up is recommended. 3. Signs of minimal Pneumoperitoneum is noted, further assessment of the abdomen is recommended. Electronically Signed by: Lyly Louie MD. ( 01/31/2023 14:44:08 SKIN FITTER)
[2023-01-31 16:11] VITALS: BP 130/90
== END 2023-01-31 16:11 | disposition home or self-care (01) ==
LOC: ED 12:13
DX: R06.02 Shortness of breath (principal); F45.9 Somatoform disorder, unspecified; J43.9 Emphysema, unspecified; Z79.899 Other long term (current) drug therapy; Z28.310 Unvaccinated for COVID-19; Z72.0 Tobacco use
CPT/HCPCS: 36000; 36415; 71260; 80053; 81001; 83880; 84484; 85025; 85379; 93005; 96374; 96375; 99284; J2270; J2405

== ENCOUNTER 2023-03-24 12:19 | Emergency (ER) | payer OTHER ==
[2023-03-24 12:39] VITALS: PULSE 78; TEMP 98.6; O2SAT 97
[2023-03-24] MEDS ORDERED: TORAdol 30 mg Injection IM ONE (12:41)
[2023-03-24] MEDS ORDERED: Norflex 60 MG/2 ML IM ONE (12:42)
[2023-03-24] MEDS ORDERED: ZOFRAN ODT 4 MG PO ONE (12:46)
[2023-03-24] MEDS ORDERED: ZOFRAN ODT 4 MG ONE (12:47)
[2023-03-24] MEDS ORDERED: TORAdol 30 mg Injection ONE (12:47)
[2023-03-24] MEDS ORDERED: Norflex 60 MG/2 ML ONE (12:47)
[2023-03-24 12:53] LABS: HCG URINE TEST NEGATIVE (NEGATIVE)
[2023-03-24 13:00] LABS: Appearance Clear (Clear); Bacteria None Seen /HPF (None Seen); Bilirubin Negative (Negative); Blood Negative (Negative); Epithelial Cells None Seen /HPF (None Seen); Glucose, Urine Negative (Negative); Hyaline Casts NONE SEEN /LPF (0-2); Ketones Negative (Negative); Leukocyte Esterase Small (Negative); Nitrite Negative (Negative); Ph 7.5 (4.6-8.0); Protein,Urine Dip Negative (Negative); RBC 0-2 /HPF (0-5); Specific Gravity <=1.005 (1.005-1.030); Urobilinogen 0.2 mg/dL (0.2)
[2023-03-24 13:01] LABS: ADD URINE CULTURE? NO (NO)
--- NOTE | 2023-03-24 13:55 | ERPHSYRPT ---
- History of Present Illness Time Seen by Provider: 03/24/23 12:40 Source: patient Exam Limitations: no limitations Patient Subjective Stated Complaint: Pt reports she has had low back pain for a couple of weeks along with urinary symptoms. Frequency, burning with urination. Triage Nursing Assessment: Pt alert and oriented x3. No apparent respiratory distress. Ambulated to ED cot without difficulty. Skin w/p/d. Tenderness to low back, no obvious deformities/discoloration. Rates pain 6/10. Physician History: 38 years old female with history of seizure disorder, chronic back pain scheduled to see pain management at [facility] presented in the ER with chief complaint of worsening back pain lately and patient thinks she probably had a seizure while she was sleeping as it was more spasm/stiff when she woke up this morning. No difficulty ambulation. No numbness tingling or weakness of lower extremities. It is mid to lower back pain. Also reports having some increased urinary frequency and burning for the last 3 to 4 days without hematuria. No flank pain. No fever or chills reported. Patient also reports in the heart that she can feel underneath the skin from a inguinal hernia repair but no discoloration of the skin. Allergies/Adverse Reactions: No Known Drug Allergies Allergy (Verified 03/24/23 12:25) Home Medications: Carbamazepine 200 mg [Tegretol 200 MG] 200 mg PO TID 10/18/21 [History] Albuterol Sulfate [Albuterol Sulfate Hfa] 1 puff IH UD 11/09/22 [History] Lamotrigine [Lamictal (Green)] 1 tab PO UD 11/09/22 [History] Umeclidinium Brm/Vilanterol Tr [Anoro Ellipta 62.5-25 Mcg INH] 1 puff IH UD 11/09/22 [History] Cariprazine HCl [Vraylar] 3 mg PO DAILY 03/24/23 [History] Zolpidem Tartrate [Ambien Cr] 6.25 mg PO HS 03/24/23 [History] Hx Tetanus, Diphtheria Vaccination/Date Given: No Hx Influenza Vaccination/Date Given: No Hx Pneumococcal Vaccination/Date Given: No Travel Risk - International Travel Have you traveled outside of the country in past 3 weeks: No - Coronavirus Screening Are you exhibiting any of the following symptoms?: No Close contact with a COVID-19 positive Pt in past 14-21 Days: No - Vaccine Status Have you recieved a Covid-19 vaccination: No - Review of Systems Constitutional: No Symptoms Eyes: No Symptoms Ears, Nose, & Throat: No Symptoms Respiratory: No Symptoms Cardiac: No Symptoms Abdominal/Gastrointestinal: No Symptoms Genitourinary Symptoms: Dysuria, Frequency Musculoskeletal: Back Pain Skin: No Symptoms Psychological: No Symptoms Endocrine: No Symptoms Hematologic/Lymphatic: No Symptoms - Past Medical History Pertinent Past Medical History: Yes Neurological History: Seizures ENT History: No Pertinent History Cardiac History: No Pertinent History Respiratory History: Asthma, COPD, Emphysema Endocrine Medical History: No Pertinent History Musculoskeletal History: No Pertinent History GI Medical History: No Pertinent History History: No Pertinent History Psycho-Social History: Anxiety, Depression Female Reproductive Disorders: No Pertinent History - Past Surgical History Past Surgical History: Yes Neuro Surgical History: No Pertinent History Cardiac: No Pertinent History Respiratory: No Pertinent History Gastrointestinal: Cholecystectomy, Hernia Repair Female Surgical History: Hysterectomy, Section Other Surgical History: hysterecomy. tonsils. c section. wisdom teeth - Social History Smoking Status: Current every day smoker How long have you smoked: years Exposure to second hand smoke: Yes Drug Use: marijuana Patient Lives Alone: Yes - Female History Hx Last Menstrual Period: hysterectomy Hx Now: No - Nursing Vital Signs Nursing Vital Signs: Initial Vital Signs Temperature 98.6 F 03/24/23 12:25 Pulse Rate 78 03/24/23 12:25 Respiratory Rate 16 03/24/23 12:25 Blood Pressure 111/69 03/24/23 12:25 O2 Sat by Pulse Oximetry 97 03/24/23 12:25 Pain Scale Pain Intensity [Lower Back] 6 Pain Intensity 6 - Physical Exam General Appearance: no apparent distress, alert Eye Exam: PERRL/EOMI Ears, Nose, Throat Exam: normal ENT inspection Neck Exam: normal inspection, full range of motion Respiratory Exam: normal breath sounds, lungs clear Cardiovascular Exam: regular rate/rhythm, normal heart sounds Gastrointestinal/Abdomen Exam: soft, normal bowel sounds, other (Well-healed hernia repair site with palpable knot underneath.), No tenderness Back Exam: normal inspection, normal range of motion, muscle spasm, point tenderness (Lumbar and lower Thoracics paraspinal area), No CVA tenderness Extremity Exam: normal inspection, normal range of motion, pelvis stable Neurologic Exam: alert, oriented x 3, cooperative Skin Exam: normal color SpO2 Interpretation: normal SpO2: 97 O2 Delivery: Room Air Ordered Tests: Active Orders 24 hr Category Date Time Status HCG QUALITATIVE, URINE Stat Lab 03/24/23 12:43 Completed UA W/RFX UR CULTURE Stat Lab 03/24/23 12:43 Completed Medication Summary Discontinued Medications Generic Name Dose Route Start Last Admin Trade Name Leeroyq PRN Reason Stop Dose Admin Ketorolac Tromethamine 30 mg 03/24/23 12:41 03/24/23 12:48 Ketorolac Tromethamine 30 Mg/Ml Inj IM 03/24/23 12:42 30 mg STAT ONE Administration Ketorolac Tromethamine Confirm 03/24/23 12:47 Ketorolac Tromethamine 30 Mg/Ml Inj Administered 03/24/23 12:48 Dose 30 mg .ROUTE .STK-MED ONE Ondansetron HCl 4 mg 03/24/23 12:46 03/24/23 12:49 Zofran 4 Mg/Udtablet Orally Disintegrating PO 03/24/23 12:47 4 mg STAT ONE Administration Ondansetron HCl Confirm 03/24/23 12:47 Zofran 4 Mg/Udtablet Orally Disintegrating Administered 03/24/23 12:48 Dose 4 mg .ROUTE .STK-MED ONE Orphenadrine Citrate 60 mg 03/24/23 12:42 03/24/23 12:49 Orphenadrine Citrate 60 Mg/2 Ml Vial IM 03/24/23 12:43 60 mg STAT ONE Administration Orphenadrine Citrate Confirm 03/24/23 12:47 Orphenadrine Citrate 60 Mg/2 Ml Vial Administered 03/24/23 12:48 Dose 60 mg .ROUTE .STK-MED ONE Lab/Rad Data: Laboratory Results 03/24/23 03/24/23 Range/Units 12:43 12:43 Urine Color Yellow (Yellow) Urine Appearance Clear (Clear) Urine pH 7.5 (4.6-8.0) Ur Specific [place] <=1.005 (1.005-1.030) Urine Protein Negative (Negative) Urine Glucose (UA) Negative (Negative) mg/dL Urine Ketones Negative (Negative) Urine Blood Negative (Negative) Urine Nitrite Negative (Negative) Urine Bilirubin Negative (Negative) Urine Urobilinogen 0.2 (0.2) mg/dL Ur Leukocyte Esterase Small A (Negative) U Hyaline Cast (Auto) NONE SEEN (0-2) /LPF Urine Microscopic RBC 0-2 (0-5) /HPF Urine Microscopic WBC 6-10 A (0-5) /HPF Ur Epithelial Cells None Seen (None Seen) /HPF Urine Bacteria None Seen (None Seen) /HPF Urine Culture Reflexed NO (NO) Urine HCG, Qual NEGATIVE (NEGATIVE) - Progress Progress: improved Progress Note: 03/24/23 13:53 38 years old female with history of seizure disorder, chronic back pain scheduled to see pain management at [facility] presented in the ER with chief complaint of worsening back pain lately and patient thinks she probably had a seizure while she was sleeping as it was more spasm/stiff when she woke up this morning. No difficulty ambulation. No numbness tingling or weakness of lower extremities. It is mid to lower back pain. Also reports having some increased urinary frequency and burning for the last 3 to 4 days without hematuria. No flank pain. No fever or chills reported. Patient also reports in the heart that she can feel underneath the skin from a inguinal hernia repair but no discoloration of the skin. She has negative neuro exam in lower extremities. No cauda equina symptoms. Intact range of motion. Has chronic pain. More pain is in the paraspinal muscles. Given Toradol and Norflex, reevaluation her pain is much improved. She does have UTI and started on Keflex. Recommended outpatient follow-up. Do not think she needs imaging or any other work-up and is stable for discharge. Discussed signs symptoms of worsening needing return to ER which she seems understanding. Counseled pt/family regarding: lab results, diagnosis, need for follow-up Medical Desision Making - Diagnostic Testing Diagnostic test were ordered, analyzed, and reviewed by me: Yes - Risk of complications The pt has a mod risk of morbidity or mortality based on: Need for prescription drug management - Departure Departure Disposition: Home Clinical Impression: Acute UTI (urinary tract infection), Back strain Condition: Stable Critical Care Time: No Referrals: RADHA MENA INDUSTRIAL THERAPIST [Primary Care Provider] - Follow up with PCP 1 day Instructions: Muscle strain Additional Instructions: Take Tylenol/ibuprofen as needed for pain. Keep appointment with pain management. Follow-up with primary care for reevaluation. Follow-up with general surgery for reevaluation of pain around hernia repair site. Return to ER for any worsening of low back pain, numbness tingling weakness of lower extremities, loss of bowel or bladder control. Prescriptions: Cephalexin Mh 500 mg [Keflex 500 mg] 500 mg PO TID #21 cap
[2023-03-24 14:01] VITALS: BP 100/66; RESP 18
== END 2023-03-24 14:01 | disposition home or self-care (01) ==
LOC: ED 12:19
DX: N39.0 Urinary tract infection, site not specified (principal); S39.012A Strain of muscle, fascia and tendon of lower back, initial encounter; R35.0 Frequency of micturition; R30.0 Dysuria; Z79.899 Other long term (current) drug therapy; Z28.310 Unvaccinated for COVID-19; Z72.0 Tobacco use
CPT/HCPCS: 81001; 81025; 96372; 99283; J1885; J2360; Q0162